=== PATIENT | male | born 1950 | race Caucasian/White ===

== ENCOUNTER 2017-04-03 19:15 | Emergency (ER) | payer MEDICARE, MEDICAID ==
[~2017-04-03] VITALS: Ht 180.3 cm; Wt 75.7 kg
[~2017-04-03 19:15] MED LIST: ALPR1T PO; ASP81TEC; ATN50T; ATOR10TA PO; CEFP500T4 PO; CEPH500C PO; CITA20TA12 PO; CLPD75T; CYCL10TA9 PO; GLPZ10TCR; KETO-22 PO; MTF500T; MTF500TCR PO; NCT21TD TD; NF-SITA50T; OXYC-272 PO; OXYC10TA8; PRCD5U; PRD20T PO; SITA25TA; SITAGLIPTIN PO; TRAM50TA2 PO; [UNRECOGNIZED DRUG - CODE]
[2017-04-03] MEDS ORDERED: OMEP20CA12 PO (19:27)
[2017-04-03] MEDS ORDERED: RX-GENTAMICIN 0.3% OP OINT 3.5 GM TUBE OP STA (19:33)
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
[2017-04-03] MEDS ORDERED: TETRACAINE 0.5% OPHTH SOLN 4 ML BTL (SINGLE DOSE ONLY) ONE (19:40)
[2017-04-03] MEDS ORDERED: FLUORESCEIN (FLUOR-I-STRIPS) 1 MG STRP ONE (19:40)
[2017-04-03] MEDS ORDERED: RX-HYDROCODONE/APAP 5/325 MG #4 TAB PK PO PRN (19:45)
[2017-04-03] MEDS ORDERED: TETRACAINE 0.5% OPHTH SOLN 4 ML BTL (SINGLE DOSE ONLY) OP ONE (19:45)
[2017-04-03] MEDS ORDERED: TETANUS,DIPTH,PERTUSS P/F (BOOSTRIX) 0.5 ML VIAL IM ONE (19:45)
[2017-04-03 19:52] VITALS: BP 141/84
== END 2017-04-03 19:45 | disposition home or self-care (01) ==
LOC: EDUNIT# 19:15 → ER 19:17
DX: S05.01XA Injury of conjunctiva and corneal abrasion without foreign body, right eye, initial encounter (principal); Z23 Encounter for immunization; I25.10 Atherosclerotic heart disease of native coronary artery without angina pectoris; I10 Essential (primary) hypertension; E11.9 Type 2 diabetes mellitus without complications; F17.210 Nicotine dependence, cigarettes, uncomplicated; Z79.82 Long term (current) use of aspirin; Z79.84 Long term (current) use of oral hypoglycemic drugs; Z79.899 Other long term (current) drug therapy; W20.8XXA Other cause of strike by thrown, projected or falling object, initial encounter; Y93.H9 Activity, other involving exterior property and land maintenance, building and construction; Y99.8 Other external cause status
CPT/HCPCS: 90471; 90715; 99283

== ENCOUNTER 2017-04-04 17:55 | Emergency (ER) | payer MEDICARE, MEDICAID ==
[~2017-04-04] VITALS: Ht 180.3 cm; Wt 75.8 kg
[~2017-04-04 17:55] MED LIST changes: +OMEP20CA12 PO
[2017-04-04] MEDS ORDERED: RX-CIPROFLOXACIN (CILOXAN) 0.3% OP SOLN 2.5 ML ONE (18:23)
--- NOTE | 2017-04-04 18:24 | ED EENT ---
History of Present Illness General Chief Complaint: Wound Check (No Charge) Stated Complaint: WOUND CHECK Nursing Triage Note: PT TO ED FOR RECHECK OF CORNEAL ABRASION. Source: patient History of Present Illness Time seen by provider: 18:03 Initial Comments PT HERE FOR RECHECK OF RIGHT CORNEAL ABRASION PT STATES NO IMPROVEMENT AND IS WORSE--REDNESS, SWELLING, DRAINAGE FROM RIGHT EYE, AND STILL WITH DECREASED VISION Allergies and Home Medications Allergies Coded Allergies: morphine (Unverified Allergy, Unknown, 08/26/10) Home Medications Alprazolam 1 Mg Tab, 1 MG PO TID PRN, (Reported) Aspirin 81 Mg Tabec, (Reported) Atenolol 50 Mg Tab, (Reported) Atorvastatin Calcium 10 Mg Tablet, 10 MG PO DAILY, (Reported) Citalopram Hydrobromide 20 Mg Tablet, 20 MG PO DAILY, (Reported) Cyclobenzaprine HCl 10 Mg Tablet, 10 MG PO Q8H PRN for SPASMS, #14 Ref 0 Prescribed by: VANESSA BOND on 05/30/16 1329 Glipizide 10 Mg Tablet, (Reported) Omeprazole 20 Mg Capsule.dr, 1 CAP PO UD, #60 (Reported) Oxycodone Hcl/Acetaminophen 1 Tab Tablet, 2 TAB PO Q6H PRN, Ref 0 (Reported) Prednisone 20 Mg Tab, 40 MG PO DAILY, #10 Ref 0 Prescribed by: VANESSA BOND on 05/30/16 1329 Sitagliptin Phosphate 25 Mg Tablet, (Reported) Tramadol HCl 50 Mg Tablet, 50 MG PO Q4H PRN for PAIN, #14 Ref 0 Prescribed by: VANESSA BOND on 05/30/16 1337 Review of Systems Constitutional: no symptoms reported Eyes: See HPI Past Eemknly-Obyemm-Aajxvl Hx Patient Social History Alcohol Use: Denies Use Recreational Drug Use: No Smoking Status: Current Everyday Smoker Type Used: Cigarettes 2nd Hand Smoke Exposure: Yes Recent Foreign Travel: No Contact w/Someone Who Travel: No Recent Hopitalizations: No Physical Abuse Screen: No Sexual Abuse: No Immunizations Up To Date Tetanus Booster (TDap): Unknown Seasonal Allergies Seasonal Allergies: No Surgeries HX Surgeries: Yes (heart cath x2) Surgeries: Cardiac, Orthopedic Respiratory Hx Respiratory Disorders: No Cardiovascular Hx Cardiac Disorders: Yes (PVD, MYOCARDIAL INFARCTION) Cardiac Disorders: Coronary Artery Disease, Heart Attack, High Cholesterol, Hypertension, Peripheral Vascular Neurological Hx Neurological Disorders: No Reproductive System Hx Reproductive Disorders: No Sexually Transmitted Disease: No Genitourinary Hx Genitourinary Disorders: No Gastrointestinal Hx Gastrointestinal Disorders: Yes Gastrointestinal Disorders: Gastroesophageal Reflux Musculoskeletal Hx Musculoskeletal Disorders: Yes (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) Musculoskeletal Disorders: Arthritis Endocrine Hx Endocrine Disorders: Yes Endocrine Disorders: Diabetes, Non-Insulin dep HEENT HX ENT Disorders: Yes (DENTAL ABSCESSES) Psychosocial Hx Psychiatric Problems: Yes Behavioral Health Disorders: Anxiety Integumentary HX Skin/Integumentary Disorder: No Blood Transfusions Hx Blood Disorders: No Physical Exam Vital Signs Vital Sign - Last 12Hours 04/04/17 18:03 Pulse 75 Resp 16 B/P (MAP) 140/78 Pulse Ox 97 O2 Delivery Room Air General Appearance: WD/WN, no apparent distress Eyes: right eye other (MILD ERYTHEMA AND SWELLING TO UPPER AND LOWER LIDS, WITH SIGNIFICANT CONJUNCTIVAL ERYTHEMA AND INFLAMMATION, AND WATERING OF RIGHT EYE. ), left eye normal inspection, bilateral eye EOMI, bilateral eye PERRL Neurologic/Psychiatric: icu clerk II-XII nml as tested, no motor/sensory deficits, alert, normal mood/affect, oriented x 3 Skin: normal color, warm/dry Eye : Location: right eye Anesthesia (gtts): Tetracaine Progress/Procedure Conclusion FLUORESCEIN STAIN--MINIMAL UPTAKE/ABRASION AT 6:00--SIGNIFICANT IMPROVEMENT IN ABRASION FROM YESTERDAY. Progress/Results/Core Measures Results/Orders My Orders Orders - DAYRON MERCADO DO Ciprofloxacin 0.3% Ophth Soln (Ciloxan 0 (04/04/17 18:30) Prednisolone 1% Ophthalmic Anusha (Pred For (04/04/17 18:30) Rx-Ciprofloxacin Ophth Soln (Rx-Ciloxan (04/04/17 18:23) Tetracaine 0.5% Ophth Huma Sdv (Tetracai (04/04/17 19:00) Fluorescein Strips (Npjhv-Y-Fjgwia) (04/04/17 19:00) Medications Given in ED Current Medications Medications Dose Ordered Sig/Joon Route Start Time Stop Time Status Last Admin Dose Admin Ciprofloxacin HCl 2.5 ml STK-MED ONCE .ROUTE 04/04/17 18:23 04/04/17 18:27 DC 04/04/17 18:28 2.5 ML Fluorescein Sodium 1 mg ONCE ONCE OU 04/04/17 19:00 04/04/17 19:01 DC 04/04/17 18:25 1 MG Tetracaine HCl 1 OR 2 DROPS INTO AFFEC... ONCE ONCE OP 04/04/17 19:00 04/04/17 19:01 DC 04/04/17 18:25 1 ML Vital Signs/I&O Vital Sign - Last 12Hours 04/04/17 18:03 Pulse 75 Resp 16 B/P (MAP) 140/78 Pulse Ox 97 O2 Delivery Room Air Departure Communication Progress Notes 1809--ATTEMPTING TO CONTACT DR. GARCIA--MESSAGE LEFT ON CELL 1839--SPOKE WITH DR. GARCIA, AGREES WITH PLAN OF CARE. WILL SEE PT TOMORROW IN OFFICE Impression Impression: Primary Impression: Right cornea abrasion Additional Impression: ALLERGIC REACTION TO OPHTHALMIC ANTIBIOTIC Disposition: HOME, SELF-CARE Condition: Stable Departure-Patient Inst. Referrals: CAROLYNE LYONS MD (PCP/Family) Primary Care Physician MIRTHA GARCIA OD, SHANE R OD Patient Instructions: Corneal Abrasion (DC), MEDICATION REACTION Add. Discharge Instructions: STOP GENTAMICIN OINTMENT AND START NEW EYE MEDICATIONS TYLENOL AND MOTRIN NEEDED FOR PAIN FOLLOW UP WITH DR. CHAN/ DR. GARCIA TOMORROW FOR FURTHER CARE All discharge instructions reviewed with patient and/or family. Voiced understanding. Images Eye 1 - Abrasion, Dye uptake (fluorescein) DAYRON MERCADO DO April 04, 2017 18:24
[2017-04-04 18:30] VITALS: BP 140/78
[2017-04-04] MEDS ORDERED: prednisoLONE 1% OPTH (PRED FORTE) 5 ML BTL OP SCH (18:30)
[2017-04-04] MEDS ORDERED: CIPROFLOXACIN 0.3% (CILOXAN) 2.5 ML BTL OP SCH (18:30)
[2017-04-04] MEDS ORDERED: TETRACAINE 0.5% OPHTH SOLN 4 ML BTL (SINGLE DOSE ONLY) OP ONE (19:00)
[2017-04-04] MEDS ORDERED: FLUORESCEIN (FLUOR-I-STRIPS) 1 MG STRP OU ONE (19:00)
== END 2017-04-04 18:30 | disposition home or self-care (01) ==
LOC: EDUNIT# 17:55 → ER 17:58
DX: H57.8 Other specified disorders of eye and adnexa (principal); T49.5X5A Adverse effect of ophthalmological drugs and preparations, initial encounter; S05.01XD Injury of conjunctiva and corneal abrasion without foreign body, right eye, subsequent encounter; Y99.8 Other external cause status

== ENCOUNTER 2017-08-20 17:39 | Emergency (ER) | payer MEDICARE, MEDICAID ==
[~2017-08-20] VITALS: Ht 177.8 cm; Wt 74.4 kg
[2017-08-20 18:26] VITALS: BP 137/74
[2017-08-21] MEDS ORDERED: CYCL10TA9 PO (08:46)
== END 2017-08-20 21:27 | disposition left against medical advice (07) ==
LOC: EDUNIT# 17:39 → ER 17:40
DX: M54.2 Cervicalgia (principal)
CPT/HCPCS: 99281

== ENCOUNTER 2017-08-21 08:29 | Emergency (ER) | payer MEDICARE, MEDICAID ==
[~2017-08-21] VITALS: Ht 185.4 cm; Wt 72.6 kg
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
[2017-08-21] MEDS ORDERED: CYCL10TA9 PO (08:46)
[2017-08-21] MEDS ORDERED: RX-CYCLOBENZAPRINE 10 MG (FLEXERIL) TAB PPK#3 PO STA (08:48)
[2017-08-21 08:55] VITALS: BP 152/78
== END 2017-08-21 08:55 | disposition home or self-care (01) ==
LOC: EDUNIT# 08:29 → ER 08:31
DX: M54.2 Cervicalgia (principal); E11.51 Type 2 diabetes mellitus with diabetic peripheral angiopathy without gangrene; I73.9 Peripheral vascular disease, unspecified; I25.2 Old myocardial infarction; E78.00 Pure hypercholesterolemia, unspecified; I25.10 Atherosclerotic heart disease of native coronary artery without angina pectoris; I10 Essential (primary) hypertension; M19.90 Unspecified osteoarthritis, unspecified site; F41.9 Anxiety disorder, unspecified; K21.9 Gastro-esophageal reflux disease without esophagitis; F17.210 Nicotine dependence, cigarettes, uncomplicated; Z79.82 Long term (current) use of aspirin; Z79.84 Long term (current) use of oral hypoglycemic drugs
CPT/HCPCS: 99282

== ENCOUNTER → 2020-05-16 | Outpatient (CLI) | payer MEDICARE, MEDICAID ==
[~2020-05-16] MED LIST changes: -OMEP20CA12 PO; +OMEP20CA18 PO; -TRAM50TA2 PO; +TRM50T PO
--- NOTE | 2020-05-16 15:49 | Diagnostic Imaging Report ---
PROCEDURE: MR imaging of the brain without contrast. TECHNIQUE: Multiplanar, multisequence MR imaging of the brain was performed without contrast. INDICATION: Dementia. FINDINGS: There are no prior MRI brain examinations available for comparison. The CT head exams of 12/10/2008 and 05/30/2016 failed to show any sign of an acute abnormality. This exam is of limited diagnostic value due to motion artifact on multiple sequences. There is no abnormal signal arising from the brain on the diffusion series to indicate an area of acute ischemia. There is no mass, shift of the midline, or hemorrhage to indicate an acute abnormality either. There are focal and diffuse areas of increased signal in the periventricular white matter bilaterally. There are also areas of increased signal in the cortices of both parietal lobes on the FLAIR series. These findings are nonspecific but may be secondary to encephalomalacia from microvascular ischemia. The ventricles themselves are not abnormally dilated. There is cortical atrophy present. The degree of atrophy is consistent with the patient's age. The sella is not enlarged and the expected carotid flow voids are evident bilaterally. The orbits are symmetrical and within normal limits. There is mild mucosal thickening of the ethmoid and maxillary sinuses. The sinuses are otherwise generally clear. The seventh and eighth nerve complexes are unremarkable. IMPRESSION: 1. There is no evidence for an acute intracranial abnormality on this suboptimal exam. 2. There is no sign of a mass lesion either. 3. There are senescent changes including cortical atrophy and periventricular and cortical encephalomalacia. Dictated by: Dictated on workstation # [id number]
== END ==
LOC: RAD 14:46
PROVIDERS: ATTEND Pediatrics
DX: F03.91 Unspecified dementia, unspecified severity, with behavioral disturbance (principal); G31.89 Other specified degenerative diseases of nervous system; G93.89 Other specified disorders of brain
CPT/HCPCS: 70551